=== PATIENT | female | born 1990 | race Caucasian/White ===

== ENCOUNTER 2017-10-02 12:54 | Emergency (ER) | payer BC ==
[2017-10-02 16:31] LABS: BASOPHIL % 0.6 % (0-2); PLATELET COUNT 304 x10^3mcL (130-400); RED CELL DISTRIBUTION WIDTH 13.3 % (11.5-14.5)
[2017-10-02 16:38] LABS: UA SPECIFIC GRAVITY <=1.005 (1.005-1.035); microscopic required? YES; urine erythrocyte 2+ (NEGATIVE)
[2017-10-02 18:31] VITALS: BP 115/76
== END 2017-10-02 18:31 | disposition home or self-care (01) ==
LOC: ED 12:54
PROVIDERS: Emergency Medicine
DX: O20.0 Threatened abortion (principal); Z3A.01 Less than 8 weeks gestation of pregnancy
CPT/HCPCS: 36415

== ENCOUNTER 2017-10-03 12:24 | Emergency (ER) | payer BC ==
[~2017-10-03] VITALS: Ht 149.9 cm; Wt 49.0 kg
[2017-10-03 13:01] VITALS: Ht 149.9 cm; Wt 49.0 kg
[2017-10-03 18:31] LABS: PLATELET COUNT 305 x10^3mcL (130-400); RED CELL DISTRIBUTION WIDTH 13.6 % (11.5-14.5)
[2017-10-03 19:24] VITALS: BP 116/74
[2017-10-03 19:35] LABS: BAND NEUTROPHIL 0 % (0-10); BASOPHIL 0 % (0-2); MONOCYTE 10 % (0-7); PLATELET MORPHOLOGY PLATELETS NORMAL; SEGMENTED NEUTROPHILS 72 % (37-75); rbc morphology (normal/abnorm) NORMAL (NORMAL)
== END 2017-10-03 19:50 | disposition home or self-care (01) ==
LOC: ED 12:24
PROVIDERS: Emergency Medicine
DX: O20.0 Threatened abortion (principal); Z3A.01 Less than 8 weeks gestation of pregnancy; F41.9 Anxiety disorder, unspecified
CPT/HCPCS: 36415

== ENCOUNTER 2017-10-03 20:36 | Emergency (ER) | payer BC ==
[2017-10-03 21:11] VITALS: BP 112/78
== END 2017-10-03 21:12 | disposition home or self-care (01) ==
LOC: ED 20:36
DX: O03.9 Complete or unspecified spontaneous abortion without complication (principal)

== ENCOUNTER 2020-07-05 17:09 | Emergency (ER) | payer BC ==
[~2020-07-05] VITALS: Ht 149.9 cm; Wt 54.9 kg
[2020-07-05 17:14] VITALS: Ht 149.9 cm; Wt 54.9 kg
[2020-07-05 18:49] VITALS: BP 128/72
== END 2020-07-05 18:49 | disposition home or self-care (01) ==
LOC: ED 17:09
DX: S61.217A Laceration without foreign body of left little finger without damage to nail, initial encounter (principal); W26.8XXA Contact with other sharp object(s), not elsewhere classified, initial encounter; Y93.89 Activity, other specified; Y92.89 Other specified places as the place of occurrence of the external cause; Y99.8 Other external cause status
CPT/HCPCS: J2001